=== PATIENT | female | born 1995 | race African-American/Black ===

== ENCOUNTER 2016-11-23 09:39 | Emergency (ER) | payer SELFPAY ==
[~2016-11-23] VITALS: Ht 165.1 cm; Wt 54.3 kg
[2016-11-23 09:50] VITALS: TEMP 36.6; Ht 165.1 cm; Wt 54.3 kg
[2016-11-23] MEDS ORDERED: IBUPROFEN 200 MG TAB PO STA (10:01)
--- NOTE | 2016-11-23 10:59 | DIAGNOSTIC IMAGING REPORT ---
RIGHT ANKLE MIN 3 VIEWS ROUTINE CLINICAL HISTORY: right ankle injury Right COMPARISON: None. DISCUSSION: The bones and joint spaces appear intact. There is no evidence of fracture, dislocation or bony disease. Mild lateral soft tissue edema IMPRESSION: Mild soft tissue edema. No acute bony abnormality. The above report was generated using voice recognition software. It may contain grammatical, syntax or spelling errors. Electronically signed by: Dillon Gonzalez M.D. 11/23/2016 10:58 AM Dictated Date/Time: 11/23/2016 10:57 AM
--- NOTE | 2016-11-23 11:15 | EMERGENCY ROOM VISIT NOTE ---
ED Visit Note First contact with patient: 09:55 CHIEF COMPLAINT: Right Ankle injury HISTORY OF PRESENT ILLNESS: This 21-year-old female patient sustained an injury to the right ankle with a twisting, inversion motion yesterday when she was playing basketball. Complains of swelling and pain. The patient is able to bear weight on the foot but with pain. Constant pain, moderate to severe, worse with movement, weight bearing, and the dependent position. No knee pain. The patient denies any prior injury to the right ankle. REVIEW OF SYSTEMS: 6 system review was performed and was negative unless stated otherwise in history of present illness. PMH: No prior significant ankle injury. The patient is generally healthy with no chronic medical problems or a history of major surgery. SOCIAL HISTORY: Patient lives at home. PHYSICAL EXAM: Vital Signs: Were reviewed Reviewed Nurse's notes. GEN.: 21-year -old female appears in no acute distress. MENTAL STATUS: Alert, oriented, and cooperative. RIGHT ANKLE: The ankle is swollen and tender over the lateral aspect but the skin is intact and there is no ligamentous instability. There is no deformity. The foot and toes are warm and well-perfused. Sensation to pain and light touch is intact. EMERGENCY DEPARTMENT COURSE: The patient was evaluated. The patient EMR medication list were reviewed. X-ray of the right ankle was ordered to rule out the radiologist and myself. DIAGNOSTICS:RIGHT ANKLE MIN 3 VIEWS ROUTINE CLINICAL HISTORY: right ankle injury Right COMPARISON: None. DISCUSSION: The bones and joint spaces appear intact. There is no evidence of fracture, dislocation or bony disease. Mild lateral soft tissue edema IMPRESSION: Mild soft tissue edema. No acute bony abnormality. The above report was generated using voice recognition software. It may contain grammatical, syntax or spelling errors. Electronically signed by: Dillon Gonzalez M.D. 11/23/2016 10:58 AM Dictated Date/Time: 11/23/2016 10:57 AM The patient was informed of findings. The patient is placed in a gel splint and given crutches. The patient was discharged home in stable condition. Right DIAGNOSIS: Sprained Ankle DISCHARGE INSTRUCTIONS: Ice and elevation over the next 24 hours. Ibuprofen, 400 mg every 6 hours if needed for pain. Use crutches and wear gel splint until weightbearing is tolerable. If there is no improvement in 3-5 days followup with your doctor or an orthopedic surgeon . No basketball for 2 weeks. Off work today. Current/Historical Medications No Active Prescriptions or Reported Meds Allergies Coded Allergies: No Known Allergies (Unverified , 02/23/16) Vital Signs Date Time Temp Pulse Resp B/P (MAP) Pulse Ox O2 Delivery O2 Flow Rate FiO2 11/23/16 09:50 36.6 47 20 109/60 100 Room Air Medications Administered Medications (Trade) Dose Ordered Sig/Jatinder Route Start Time Stop Time Status Last Admin Dose Admin Ibuprofen (Advil Tab) 400 mg NOW STAT PO 11/23/16 10:01 11/23/16 10:03 DC 11/23/16 10:19 400 MG Departure Information Prescriptions No Active Prescriptions or Reported Meds Referrals No Doctor, Assigned (PCP) Patient Instructions [facility]
[2016-11-23 11:50] VITALS: BP 142/87; PULSE 52; O2SAT 100
== END 2016-11-23 11:51 | disposition home or self-care (01) ==
LOC: C.EDB 09:40 → C.EDC 11:51
DX: S93.401A Sprain of unspecified ligament of right ankle, initial encounter (principal); X58.XXXA Exposure to other specified factors, initial encounter

== ENCOUNTER 2017-06-13 18:07 | Observation (INO) | payer SELFPAY ==
[~2017-06-13] VITALS: Ht 165.1 cm; Wt 54.1 kg
[2017-06-13] MEDS ORDERED: MAGNESIUM HYDROXIDE SUSP 30 ML UDC PO PRN (18:30)
[2017-06-13] MEDS ORDERED: ALUMINUM/MAGNESIUM/SIMETH (MAALOX MAX) 30 ML UDC PO PRN (18:30)
[2017-06-13] MEDS ORDERED: ONDANSETRON INJ 2 MG/ML 2 ML VIAL IV PRN (18:30)
[2017-06-13] MEDS ORDERED: ACETAMINOPHEN 325 MG TAB PO PRN (18:30)
[2017-06-13] MEDS ORDERED: IV FLUIDS COMPLETED PRN (19:30)
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
[2017-06-13] MEDS ORDERED: GUAIFENESIN SUGAR FREE 100 MG/5 ML UDC PO PRN (19:45)
[2017-06-13 21:10] LABS: BASO % 0.3 %; BASO ABS # 0.01 K/uL (0-0.2); EOS % 0.8 %; EOS ABS # 0.03 K/uL (0-0.5); HEMATOCRIT 35.3 % (37-47); HEMOGLOBIN 12.7 g/dL (12.0-16.0); LYMPH % 30.4 %; LYMPH ABS # 1.17 K/uL (1.2-3.4); MEAN CELL VOLUME 91.2 fL (80-100); MEAN CORPUSCULAR HEMOGLOBIN 32.8 pg (25-34); MEAN PLATELET VOLUME 9.5 fL (7.4-10.4); MONO % 15.6 %; NEUT % 52.9 %; NEUT ABS # 2.04 K/uL (1.4-6.5); PLATELET COUNT 254 K/uL (130-400); RED CELL DISTRIBUTION WIDTH SD 40.1 fL (36.4-46.3); WHITE BLOOD COUNT 3.85 K/uL (4.8-10.8)
[2017-06-13 21:19] LABS: MONOSPOT NEG (NEG)
[2017-06-13] MEDS ORDERED: POLYETHYLENE (MIRALAX) 17 GM PACK PO PRN (21:45)
[2017-06-13 22:05] LABS: ALBUMIN 3.7 gm/dl (3.4-5.0); ALKALINE PHOSPHATASE 53 U/L (45-117); ALT/SGPT 34 U/L (12-78); AST/SGOT 20 U/L (15-37); BLOOD UREA NITROGEN 10 mg/dl (7-18); CALCIUM 8.5 mg/dl (8.5-10.1); CARBON DIOXIDE 26 mmol/L (21-32); CREATININE 0.88 mg/dl (0.60-1.20); GLUCOSE 87 mg/dl (70-99); SODIUM 138 mmol/L (136-145); TOTAL PROTEIN 7.3 gm/dl (6.4-8.2)
[2017-06-13 22:06] LABS: POTASSIUM 3.5 mmol/L (3.5-5.1)
[2017-06-13] MEDS: SODIUM CHLORIDE 0.9% 1000ML 1,000 ML IV SCH (22:30)
[2017-06-13] MEDS ORDERED: KETOROLAC TROMETHAMINE 15 MG/ML VIAL IV PRN (23:00)
[2017-06-14] VITALS (9 sets, daily range): BP systolic 108–137; BP diastolic 68–81; PULSE 44–56; TEMP 36.6–37.3; O2SAT 97–100; Ht 165.1 cm; Wt 54.1 kg
[2017-06-14 06:32] LABS: HEMATOCRIT 32.8 % (37-47); HEMOGLOBIN 11.7 g/dL (12.0-16.0); MEAN CELL VOLUME 92.1 fL (80-100); MEAN CORPUSCULAR HEMOGLOBIN 32.9 pg (25-34); MEAN CORPUSCULAR HGB CONC 35.7 g/dl (32-36); MEAN PLATELET VOLUME 9.7 fL (7.4-10.4); PLATELET COUNT 222 K/uL (130-400); RED CELL DISTRIBUTION WIDTH SD 40.6 fL (36.4-46.3); WHITE BLOOD COUNT 3.07 K/uL (4.8-10.8)
[2017-06-14 07:02] LABS: ALT/SGPT 28 U/L (12-78); AST/SGOT 18 U/L (15-37); BLOOD UREA NITROGEN 11 mg/dl (7-18); CALCIUM 7.6 mg/dl (8.5-10.1); CARBON DIOXIDE 25 mmol/L (21-32); CREATININE 0.79 mg/dl (0.60-1.20); GLUCOSE 80 mg/dl (70-99); POTASSIUM 4.1 mmol/L (3.5-5.1); SODIUM 137 mmol/L (136-145)
[2017-06-14 07:05] LABS: ALKALINE PHOSPHATASE 47 U/L (45-117); TOTAL PROTEIN 6.1 gm/dl (6.4-8.2)
[2017-06-14] MEDS: SODIUM CHLORIDE 0.9% 1000ML 1,000 ML IV SCH ×3 (07:31→22:25)
[2017-06-14 07:45] LABS: BASO % 0.3 %; BASO ABS # 0.01 K/uL (0-0.2); EOS % 3.3 %; IG# 0.01 K/uL (0.00-0.02); LYMPH % 52.8 %; LYMPH ABS # 1.62 K/uL (1.2-3.4); MONO % 19.9 %; MONO ABS # 0.61 K/uL (0.11-0.59); NEUT % 23.4 %; NEUT ABS # 0.72 K/uL (1.4-6.5)
--- NOTE | 2017-06-14 10:13 | Progress Note ---
Medicine Progress Note Date & Time of Visit: Jun 14, 2017 at 10:08. Subjective patient seen resting in bed, comfortable friend at bedside not in distress states she feels improved compared to yesterday symptoms are improving less nasal congestion, no rhinorrhea, no cough, dyspnea; less chest congestion denies any other symptoms eager for discharge Objective Last 8 Hrs Date Time Temp Pulse Resp B/P (MAP) Pulse Ox O2 Delivery O2 Flow Rate FiO2 06/14/17 08:28 100 Room Air 06/14/17 07:15 36.6 56 16 123/77 (92) 100 Room Air 06/14/17 03:00 36.7 48 16 131/77 (95) 97 Room Air 06/14/17 02:15 37.3 46 18 108/68 Room Air Physical Exam: General- oriented x 3, not in distress, speaks in sentences with no effort Head- atraumatic Eyes- PERRL, EOMI, anicteric ENT- oropharynx clear Neck- supple, no JVD, no adenopathy, no thyromegaly Lungs- clear to auscultation bilaterally Heart- regular rhythm; no murmur, normal rate Abdomen- normal bowel sounds, soft, nontender Extremities- no pretibial edema, no calf tenderness; peripheral pulses intact Neuro- alert, oriented x 3; no gross focal deficits Skin- warm & dry Laboratory Results: Last 24 Hours Test 06/13/17 20:38 06/14/17 05:41 White Blood Count 3.85 K/uL 3.07 K/uL Red Blood Count 3.87 M/uL 3.56 M/uL Hemoglobin 12.7 g/dL 11.7 g/dL Hematocrit 35.3 % 32.8 % Mean Corpuscular Volume 91.2 fL 92.1 fL Mean Corpuscular Hemoglobin 32.8 pg 32.9 pg Mean Corpuscular Hemoglobin Concent 36.0 g/dl 35.7 g/dl Platelet Count 254 K/uL 222 K/uL Mean Platelet Volume 9.5 fL 9.7 fL Neutrophils (%) (Auto) 52.9 % 23.4 % Lymphocytes (%) (Auto) 30.4 % 52.8 % Monocytes (%) (Auto) 15.6 % 19.9 % Eosinophils (%) (Auto) 0.8 % 3.3 % Basophils (%) (Auto) 0.3 % 0.3 % Neutrophils # (Auto) 2.04 K/uL 0.72 K/uL Lymphocytes # (Auto) 1.17 K/uL 1.62 K/uL Monocytes # (Auto) 0.60 K/uL 0.61 K/uL Eosinophils # (Auto) 0.03 K/uL 0.10 K/uL Basophils # (Auto) 0.01 K/uL 0.01 K/uL RDW Standard Deviation 40.1 fL 40.6 fL RDW Coefficient of Variation 12.0 % 12.0 % Immature Granulocyte % (Auto) 0.0 % 0.3 % Immature Granulocyte # (Auto) 0.00 K/uL 0.01 K/uL Peripheral Blood Smear Path Consult Sodium Level 138 mmol/L 137 mmol/L Potassium Level 3.5 mmol/L 4.1 mmol/L Chloride Level 106 mmol/L 107 mmol/L Carbon Dioxide Level 26 mmol/L 25 mmol/L Anion Gap 7.0 mmol/L 5.0 mmol/L Blood Urea Nitrogen 10 mg/dl 11 mg/dl Creatinine 0.88 mg/dl 0.79 mg/dl Estimated GFR () 106.6 121.4 Estimated GFR (Non- 92.0 104.8 BUN/Creatinine Ratio 11.2 14.3 Random Glucose 87 mg/dl 80 mg/dl Calcium Level 8.5 mg/dl 7.6 mg/dl Total Bilirubin 0.3 mg/dl 0.3 mg/dl Direct Bilirubin < 0.1 mg/dl < 0.1 mg/dl Aspartate Amino Transf (AST/SGOT) 20 U/L 18 U/L Alanine Aminotransferase (ALT/SGPT) 34 U/L 28 U/L Alkaline Phosphatase 53 U/L 47 U/L Total Protein 7.3 gm/dl 6.1 gm/dl Albumin 3.7 gm/dl 3.0 gm/dl Globulin 3.6 gm/dl 3.1 gm/dl Albumin/Globulin Ratio 1.0 1.0 Human Chorionic Gonadotropin, Qual NEG Monoscreen NEG Est Creatinine Clear Calc Drug Dose 93.4 ml/min Assessment & Plan UPPER RESPIRATORY TRACT INFECTION likely Viral Etiology - CXR: no pneumonia - Flu PCR negative Monospot negative - afebrile WBC lower today, management below - continue IV fluids monitor NEUTROPENIA - ANC lower, 720 today - peripheral smear: Leucopenia clinically seems most likely viral suppression, but no reactive changes in lymphocytes to support this and serologies negative so far. Only minimal hypolobation of neutrophils present. No overt features to suggest dysplasia and no left shift or blasts. Thus, no real evidence to point to bone marrow disorder. Follow up suggested to confirm return to normal counts. If counts stay persistently low then could consider hematology work up. - monitor CBC consult Hematology DVT Prophylaxis -SCD, ambulate Disposition anticipate d/c home when WBC improves needs to establish with PCP Current Inpatient Medications: Current Inpatient Medications Medications (Trade) Dose Ordered Sig/Jatinder Route Start Time Stop Time Status Last Admin Dose Admin Acetaminophen (Tylenol Tab) 650 mg Q4H PRN PO 06/13/17 18:30 07/13/17 18:29 Al Hydrox/Mg Hydrox/Simethicone (Maalox Max Susp) 15 ml Q4H PRN PO 06/13/17 18:30 07/13/17 18:29 Magnesium Hydroxide (Milk Of Magnesia Susp) 30 ml Q6H PRN PO 06/13/17 18:30 07/13/17 18:29 Polyethylene (Miralax Powder Packet) 17 gm DAILY PRN PO 06/13/17 21:45 07/13/17 21:44 Ondansetron HCl (Zofran Inj) 4 mg Q6H PRN IV 06/13/17 18:30 07/13/17 18:29 Sodium Chloride 1,000 ml @ 125 mls/hr Q8H IV 06/13/17 22:30 07/13/17 22:29 06/14/17 07:31 125 MLS/HR Miscellaneous (Iv Fluids Completed) 1 ea PRN PRN N/A 06/13/17 19:30 06/13/18 19:29 Guaifenesin (Robitussin Sugar Free Syrup) 100 mg Q6H PRN PO 06/13/17 19:45 07/13/17 19:44 Ketorolac Tromethamine (Toradol Inj) 15 mg Q6H PRN IV 06/13/17 23:00 06/18/17 22:59 06/13/17 23:30 15 MG
[2017-06-14 22:29] LABS: HEMATOCRIT 37.9 % (37-47); HEMOGLOBIN 13.8 g/dL (12.0-16.0); MEAN CELL VOLUME 90.9 fL (80-100); MEAN CORPUSCULAR HEMOGLOBIN 33.1 pg (25-34); MEAN CORPUSCULAR HGB CONC 36.4 g/dl (32-36); MEAN PLATELET VOLUME 9.4 fL (7.4-10.4); PLATELET COUNT 256 K/uL (130-400); RETIC COUNT % 0.9 % (0.5-2.0); WHITE BLOOD COUNT 3.49 K/uL (4.8-10.8)
[2017-06-14 22:48] LABS: BASO % 0.3 %; BASO ABS # 0.01 K/uL (0-0.2); EOS % 1.7 %; EOS ABS # 0.06 K/uL (0-0.5); LYMPH ABS # 1.78 K/uL (1.2-3.4); MONO ABS # 0.42 K/uL (0.11-0.59); NEUT ABS # 1.22 K/uL (1.4-6.5)
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
[2017-06-14 22:59] LABS: TRANSFERRIN 222 mg/dl (200-360)
[2017-06-15] VITALS (7 sets, daily range): BP systolic 94–143; BP diastolic 54–85; PULSE 48–132; TEMP 36.5–37.1; O2SAT 98–100
[2017-06-15] MEDS: SODIUM CHLORIDE 0.9% 1000ML 1,000 ML IV SCH ×2 (06:31→14:41)
--- NOTE | 2017-06-15 06:41 | DIAGNOSTIC IMAGING REPORT ---
NECK ULTRASOUND CLINICAL HISTORY: neutropenia, small left posterior cervical lymph nodes. COMPARISON STUDY: None. TECHNIQUE: Sonography of the neck at site of palpable abnormality was performed. FINDINGS: Targeted sonography of the left posterior neck at site of palpable abnormality demonstrated a morphologically benign left-sided cervical lymph nodes. Each of these is elongated. The largest measures 2.7 x 0.7 x 1.1 cm. IMPRESSION: Several morphologically benign left-sided cervical lymph nodes. None of these have suspicious imaging characteristics however clinical follow-up to ensure stability is recommended. If interval enlargement, repeat ultrasound is recommended. Electronically signed by: Michael Ibrahim M.D. 06/15/2017 6:39 AM Dictated Date/Time: 06/15/2017 6:37 AM
--- NOTE | 2017-06-15 06:43 | DIAGNOSTIC IMAGING REPORT ---
LEFT UPPER QUADRANT ABDOMINAL ULTRASOUND HISTORY: Neutropenia. Evaluate for splenomegaly. COMPARISON: None. FINDINGS: The size of the spleen is normal, measuring 10.6 cm in maximal dimension. There is no perisplenic fluid. There is no splenic mass. The left kidney is within normal limits, measuring 11.1 cm there is no left hydronephrosis. IMPRESSION: Normal size spleen. Electronically signed by: Michael Ibrahim M.D. 06/15/2017 6:41 AM Dictated Date/Time: 06/15/2017 6:40 AM
[2017-06-15 09:23] LABS: BASO % 0.2 %; BASO ABS # 0.01 K/uL (0-0.2); EOS % 1.7 %; EOS ABS # 0.07 K/uL (0-0.5); HEMATOCRIT 35.7 % (37-47); HEMOGLOBIN 13.1 g/dL (12.0-16.0); IG# 0.01 K/uL (0.00-0.02); LYMPH % 48.1 %; MEAN CELL VOLUME 90.4 fL (80-100); MEAN CORPUSCULAR HEMOGLOBIN 33.2 pg (25-34); MEAN CORPUSCULAR HGB CONC 36.7 g/dl (32-36); MEAN PLATELET VOLUME 9.3 fL (7.4-10.4); MONO % 11.8 %; MONO ABS # 0.49 K/uL (0.11-0.59); NEUT ABS # 1.58 K/uL (1.4-6.5); PLATELET COUNT 228 K/uL (130-400); RED CELL DISTRIBUTION WIDTH CV 11.9 % (11.5-14.5); RED CELL DISTRIBUTION WIDTH SD 39.6 fL (36.4-46.3); WHITE BLOOD COUNT 4.16 K/uL (4.8-10.8)
--- NOTE | 2017-06-15 16:09 | Progress Note ---
Medicine Progress Note Date & Time of Visit: Jun 15, 2017 at 15:44. Subjective seen resting in bed, comfortable, in good spirits states she feels improved overall less nasal congestion, no cough/chest congestion/shortness of breath no neck pain ambulating with no problems denies any other symptoms states she is ready, ok for discharge today Objective Last 8 Hrs Date Time Temp Pulse Resp B/P (MAP) Pulse Ox O2 Delivery O2 Flow Rate FiO2 06/15/17 11:27 36.5 50 15 97/54 (68) 99 Room Air 06/15/17 08:30 100 Room Air Physical Exam: General- oriented x 3, not in distress, speaks in sentences with no effort Head- atraumatic Eyes- anicteric Neck- supple, no JVD, mild lymphadenopathy on the left side of the neck Lungs- clear breath sounds bilaterally Heart- regular rhythm; no murmur, normal rate Abdomen- normal bowel sounds, soft, nontender Extremities- no pretibial edema, no calf tenderness; peripheral pulses intact Neuro- alert, oriented x 3; no gross focal deficits Skin- warm & dry Laboratory Results: Last 24 Hours Test 06/14/17 22:09 06/15/17 09:05 White Blood Count 3.49 K/uL 4.16 K/uL Red Blood Count 4.17 M/uL 3.95 M/uL Hemoglobin 13.8 g/dL 13.1 g/dL Hematocrit 37.9 % 35.7 % Mean Corpuscular Volume 90.9 fL 90.4 fL Mean Corpuscular Hemoglobin 33.1 pg 33.2 pg Mean Corpuscular Hemoglobin Concent 36.4 g/dl 36.7 g/dl Platelet Count 256 K/uL 228 K/uL Mean Platelet Volume 9.4 fL 9.3 fL Neutrophils (%) (Auto) 35.0 % 38.0 % Lymphocytes (%) (Auto) 51.0 % 48.1 % Monocytes (%) (Auto) 12.0 % 11.8 % Eosinophils (%) (Auto) 1.7 % 1.7 % Basophils (%) (Auto) 0.3 % 0.2 % Neutrophils # (Auto) 1.22 K/uL 1.58 K/uL Lymphocytes # (Auto) 1.78 K/uL 2.00 K/uL Monocytes # (Auto) 0.42 K/uL 0.49 K/uL Eosinophils # (Auto) 0.06 K/uL 0.07 K/uL Basophils # (Auto) 0.01 K/uL 0.01 K/uL RDW Standard Deviation 40.0 fL 39.6 fL RDW Coefficient of Variation 12.0 % 11.9 % Immature Granulocyte % (Auto) 0.0 % 0.2 % Immature Granulocyte # (Auto) 0.00 K/uL 0.01 K/uL Red Blood Cell Morphology Unremarkable Absolute Reticulocyte Count 0.04 10^6/uL Percent Reticulocyte Count 0.9 % Iron Level 36 mcg/dl Total Iron Binding Capacity 300 mcg/dl Transferrin 222 mg/dl Transferrin % Saturation 12 % Lactate Dehydrogenase 146 U/L Vitamin B12 Level 581 pg/mL Folate 8.05 ng/mL Assessment & Plan NEUTROPENIA, RESOLVED LIKELY SECONDARY TO VIRAL UPPER RESPIRATORY TRACT INFECTION - CXR: no pneumonia - Flu PCR negative Monospot negative - given supportive care, IV fluids - remained afebrile WBC improved 3.49 --> 4.16 ANC improved 0.72 --> 1.58 - Peripheral Smear: Leucopenia clinically seems most likely viral suppression, but no reactive changes in lymphocytes to support this and serologies negative so far. Only minimal hypolobation of neutrophils present. No overt features to suggest dysplasia and no left shift or blasts. Thus, no real evidence to point to bone marrow disorder. Follow up suggested to confirm return to normal counts. If counts stay persistently low then could consider hematology work up. - Spleen US: The size of the spleen is normal, measuring 10.6 cm in maximal dimension. There is no perisplenic fluid. There is no splenic mass. The left kidney is within normal limits, measuring 11.1 cm there is no left hydronephrosis. IMPRESSION: Normal size spleen. - consulted Dr. Morataya- Ore Washer ANCA, Flow Cytometry pending - patient's WBC improved clinically, also improved stable for discharge - follow up with PCP, repeat CBC in 3-5 days (if not improving, CBC twice weekly ) follow up with Dr. Morataya in 2 weeks LEFT NECK LYMPHADENOPATHY Neck US: FINDINGS: Targeted sonography of the left posterior neck at site of palpable abnormality demonstrated a morphologically benign left-sided cervical lymph nodes. Each of these is elongated. The largest measures 2.7 x 0.7 x 1.1 cm. IMPRESSION: Several morphologically benign left-sided cervical lymph nodes. None of these have suspicious imaging characteristics however clinical follow-up to ensure stability is recommended. If interval enlargement, repeat ultrasound is recommended. -- Ore Washer Dr. Morataya recommends referral to ENT for follow up of Neck Lymphadenopathy Disposition d/c home ff up with PCP in 3-5 days, will need to establish with PCP in [place], will call office to arrange PCP visit ff up with ENT in 1-2 weeks ff up with Dr. Morataya in 2 weeks Current Inpatient Medications: Current Inpatient Medications Medications (Trade) Dose Ordered Sig/Jatinder Route Start Time Stop Time Status Last Admin Dose Admin Acetaminophen (Tylenol Tab) 650 mg Q4H PRN PO 06/13/17 18:30 07/13/17 18:29 Al Hydrox/Mg Hydrox/Simethicone (Maalox Max Susp) 15 ml Q4H PRN PO 06/13/17 18:30 07/13/17 18:29 Magnesium Hydroxide (Milk Of Magnesia Susp) 30 ml Q6H PRN PO 06/13/17 18:30 07/13/17 18:29 Polyethylene (Miralax Powder Packet) 17 gm DAILY PRN PO 06/13/17 21:45 07/13/17 21:44 Ondansetron HCl (Zofran Inj) 4 mg Q6H PRN IV 06/13/17 18:30 07/13/17 18:29 Sodium Chloride 1,000 ml @ 125 mls/hr Q8H IV 06/13/17 22:30 07/13/17 22:29 06/15/17 14:41 125 MLS/HR Miscellaneous (Iv Fluids Completed) 1 ea PRN PRN N/A 06/13/17 19:30 06/13/18 19:29 Guaifenesin (Robitussin Sugar Free Syrup) 100 mg Q6H PRN PO 06/13/17 19:45 07/13/17 19:44 Ketorolac Tromethamine (Toradol Inj) 15 mg Q6H PRN IV 06/13/17 23:00 06/18/17 22:59 06/13/17 23:30 15 MG
--- NOTE | 2017-06-15 16:15 | Discharge Summary ---
Discharge Summary Date of Service Jun 15, 2017. Discharge Summary Admission Date: Jun 13, 2017 at 18:19 Discharge Date: Jun 15, 2017 Discharge Disposition: Home Principal Diagnosis: NEUTROPENIA, RESOLVED LIKELY SECONDARY TO VIRAL UPPER RESPIRATORY TRACT INFECTION Secondary Diagnoses/Problems: Please refer to hospital course below. Procedures: NECK ULTRASOUND CLINICAL HISTORY: neutropenia, small left posterior cervical lymph nodes. COMPARISON STUDY: None. TECHNIQUE: Sonography of the neck at site of palpable abnormality was performed. FINDINGS: Targeted sonography of the left posterior neck at site of palpable abnormality demonstrated a morphologically benign left-sided cervical lymph nodes. Each of these is elongated. The largest measures 2.7 x 0.7 x 1.1 cm. IMPRESSION: Several morphologically benign left-sided cervical lymph nodes. None of these have suspicious imaging characteristics however clinical follow-up to ensure stability is recommended. If interval enlargement, repeat ultrasound is recommended. LEFT UPPER QUADRANT ABDOMINAL ULTRASOUND HISTORY: Neutropenia. Evaluate for splenomegaly. COMPARISON: None. FINDINGS: The size of the spleen is normal, measuring 10.6 cm in maximal dimension. There is no perisplenic fluid. There is no splenic mass. The left kidney is within normal limits, measuring 11.1 cm there is no left hydronephrosis. IMPRESSION: Normal size spleen. Consultations: Java Analyst Dr. Morataya Pending Studies/Follow-Up: Please refer to hospital course below. Medication Reconciliation Medication Profile: No Active Prescriptions or Reported Meds Admission Information HPI (per Admitting provider): Pt is 22 y/o F who presented to ER earlier today for URI symptoms. At that time was found to have WBC: 2.5 and neutrophil: 0.84. negative CXR, negative influenza. She was to be admitted, however pt left AMA. She now returns for admission. Pt reports past couple of days with rhinorrhea, nasal congestion, myalgias, cough, sometimes productive. Also c/o chest tightness sensation. Denies SOB or palpitations. She was taking NyQuil and Tylenol cold medicine without much relief. Denies ill contacts. Denies hx mono. Denies fever/chills, diaphoresis, N/V/D/C, MORALES, dizziness, syncope, vision changes, neck pain, hemoptysis, sore throat, choking, otalgia, abdominal pain, paresthesias, weakness, extremity edema, rashes, urinary symptoms. Denies recent travel, immobilization. Not on other medications or herbal products Pt not currently enrolled this spring. Plans to finish final semester at [employer] for summer session 2017 Physical Exam (per Admitting): General Appearance: WD/WN, no apparent distress Head: normocephalic, atraumatic Eyes: normal inspection, PERRL, EOMI, sclerae normal ENT: TMs normal, pharynx normal, + pertinent finding (no tonsillar erythema or exudate) Neck: supple, no adenopathy, trachea midline Respiratory/Chest: lungs clear, normal breath sounds, no respiratory distress, no accessory muscle use Cardiovascular: regular rate, rhythm, no murmur, normal peripheral pulses Abdomen/GI: normal bowel sounds, non tender, soft Extremities/Musculoskelatal: normal inspection, no calf tenderness, normal capillary refill, no pedal edema, normal range of motion, non-tender Neurologic/Psych: alert, normal mood/affect, oriented x 3 Skin: normal color, warm/dry, no rash Hospital Course NEUTROPENIA, RESOLVED LIKELY SECONDARY TO VIRAL UPPER RESPIRATORY TRACT INFECTION - CXR: no pneumonia - Flu PCR negative Monospot negative - given supportive care, IV fluids - remained afebrile WBC improved 3.49 --> 4.16 ANC improved 0.72 --> 1.58 - Peripheral Smear: Leucopenia clinically seems most likely viral suppression, but no reactive changes in lymphocytes to support this and serologies negative so far. Only minimal hypolobation of neutrophils present. No overt features to suggest dysplasia and no left shift or blasts. Thus, no real evidence to point to bone marrow disorder. Follow up suggested to confirm return to normal counts. If counts stay persistently low then could consider hematology work up. - Spleen US: The size of the spleen is normal, measuring 10.6 cm in maximal dimension. There is no perisplenic fluid. There is no splenic mass. The left kidney is within normal limits, measuring 11.1 cm there is no left hydronephrosis. IMPRESSION: Normal size spleen. - consulted Dr. Morataya- Java Analyst ANCA, Flow Cytometry pending - patient's WBC improved clinically, also improved, upper respiratory tract symptoms improving stable for discharge - follow up with PCP, repeat CBC in 3-5 days (if not improving, CBC twice weekly ) follow up with Dr. Morataya in 2 weeks LEFT NECK LYMPHADENOPATHY Neck US: FINDINGS: Targeted sonography of the left posterior neck at site of palpable abnormality demonstrated a morphologically benign left-sided cervical lymph nodes. Each of these is elongated. The largest measures 2.7 x 0.7 x 1.1 cm. IMPRESSION: Several morphologically benign left-sided cervical lymph nodes. None of these have suspicious imaging characteristics however clinical follow-up to ensure stability is recommended. If interval enlargement, repeat ultrasound is recommended. -- Java Analyst Dr. Morataya recommends referral to ENT for follow up of Neck Lymphadenopathy Disposition d/c home ff up with PCP in 3-5 days, will need to establish with PCP in [place], will call office to arrange PCP visit ff up with ENT in 1-2 weeks ff up with Dr. Morataya in 2 weeks Total time spent on discharge = 30 minutes This includes examination of the patient, discharge planning, medication reconciliation, and communication with other providers. Discharge Instructions Discharge Instructions Date of Service Jun 15, 2017. Admission Reason for Admission: Neutropenic Discharge Discharge Diagnosis / Problem: NEUTROPENIA, RESOLVED, LIKELY FROM VIRAL ILLNESS Discharge Goals Goal(s): Diagnostic testing, Therapeutic intervention Activity Recommendations Activity Limitations: as noted below (INCREASE ACTIVITY GRADUALLY TOLERATED) Lifting Limitations: until after follow-up appointment . Instructions / Follow-Up Instructions / Follow-Up CALL PRIMARY CARE PHYSICIAN OR RETURN TO THE ER IMMEDIATELY IF WITH WORSENING OF SYMPTOMS, FEVER/CHILLS, NAUSEA/VOMITING, SHORTNESS OF BREATH, INCREASING SWELLING OF THE NECK LYMPH NODES. ENSURE ADEQUATE DAILY FLUID INTAKE. EAT A BALANCED DIET, LOTS OF FRUITS AND VEGETABLES. [facility] WILL BE CALLING YOU REGARDING YOUR APPOINTMENT FOR A FOLLOW UP VISIT WITH A PRIMARY CARE PHYSICIAN THIS COMING WEEK. PLEASE MAKE IT TO THE APPOINTMENT. REPEAT BLOOD WORK WILL ALSO BE PERFORMED. FOLLOW UP WITH AN EAR, NOSE AND THROAT SPECIALIST IN 1-2 WEEKS. FOLLOW UP WITH RADIAL ARM SAW OPERATOR DR. MORATAYA IN 2 WEEKS. (PRIMARY CARE PHYSICIAN CAN ASSIST YOU SETTING UP APPOINTMENTS FOR ABOVE). Current Hospital Diet Patient's current hospital diet: Regular Diet Discharge Diet Recommended Diet: Regular Diet Procedures Procedures Performed: NECK ULTRASOUNDS, SPLEEN ULTRASOUND Pending Studies Studies pending at discharge: yes List of pending studies: REPEAT BLOOD WORK C/O PRIMARY CARE PHYSICIAN Medical Emergencies . Who to Call and When: Medical Emergencies: If at any time you feel your situation is an emergency, please call 911 immediately. . Non-Emergent Contact Non-Emergency issues call your: Primary Care Provider Call Non-Emergent contact if: you have a fever, your pain is not controlled, your pain is worsening, you have any medication questions . . "Provider Documentation" section prepared by Ted Alejandro. . VTE Core Measure Inpt VTE Proph given/why not?: SCD's
== END 2017-06-15 17:30 | disposition home or self-care (01) ==
LOC: C.EDB 18:08 → C.4E 18:19 → ENRESERV 20:28
PROVIDERS: ADMIT Hospitalist; ATTEND Internal Medicine
DX: D70.9 Neutropenia, unspecified (principal); J34.89 Other specified disorders of nose and nasal sinuses; R09.81 Nasal congestion; M79.1 Myalgia; R05 Cough; Z84.1 Family history of disorders of kidney and ureter; Z80.7 Family history of other malignant neoplasms of lymphoid, hematopoietic and related tissues